=== PATIENT | female | born 1955 | race Caucasian/White ===

== ENCOUNTER 2017-06-07 08:21 | Emergency (ER) | payer BC ==
[2017-06-07 09:22] LABS: #Eosinphils 0.2 thou/uL (0.0-0.7); #Lymphocytes 1.6 thou/uL (1.20-3.40); #Monocytes 0.8 thou/uL (0.11-0.59); #Neutrophils 9.2 thou/uL (1.40-6.50); %Basophils 0.3 % (0.0-1.0); %Eosinophils 1.4 % (0.0-10.0); %Lymphocytes 13.4 % (21.0-51.0); %Monocytes 6.4 % (0.0-10.0); %Neutrophils 78.5 % (42.0-75.0); Hemoglobin 15.2 g/dL (12.0-16.0); Mean Corpuscular HGB CONC 34.1 g/dL (32.0-36.0); Mean Corpuscular Hemoglobin 31.6 pg (27.0-31.0); Mean Corpuscular Volume 92.7 fl (81.0-99.0); Mean Platelet Volume 8.5 fL (7.4-10.4); Platelet Count 233 thou/uL (130-400); RBC Distribution Width 11.3 % (11.5-14.5); White Blood Cell (WBC) Count 11.8 thou/uL (4.8-10.8)
[2017-06-07 09:27] LABS: Bilirubin Negative (Negative); Blood, Urine Negative (Negative); Clarity CLEAR (Clear); Glucose, Urine (Dipstick) Negative (Negative); Leukocyte Small (Negative); Nitrite Negative (Negative); Protein, Urine (Dipstick) Negative (Neg-Trace); Specific Gravity, Urine 1.023 (1.002-1.036); Urobilinogen 0.2 mg/dL (0.2-1.0); pH, Urine 7.5 (5.0-9.0)
[2017-06-07 09:33] LABS: Bacteria/HPF None Seen HPF (None Seen); Hyaline Casts/LPF 0-3 HYALINE CAST LPF (0-3 Hyaline); Pathc Cast-AUWi Flag 0.13 (0-2.49); RBC/HPF 0-3 HPF (0-3); Squamous Epithelial 0-3 HPF (0-3)
[2017-06-07 09:41] LABS: ALT (SGPT) 21 U/L (8-55); AST (SGOT) 17 U/L (5-34); Albumin 4.2 g/dL (3.4-4.8); Alkaline Phosphatase 92 U/L (40-150); Anion Gap 11 mmol/L (10-20); BUN (Urea Nitrogen) 12 mg/dL (9.8-20.1); Bilirubin, Total 1.1 mg/dL (0.2-1.2); Calc. Creatinine Clearance 0 mL/min (70-130); Carbon Dioxide 28 mmol/L (23-31); Chloride 104 mmol/L (98-107); Estimated GFR-MDRD 67; Globulin 3.2 g/dL (2.4-3.5); Glucose 165 mg/dL (80-115); Lipase 46 U/L (8-78); Protein, Total 7.4 g/dL (6.0-8.3); Sodium 139 mmol/L (136-145)
--- NOTE | 2017-06-07 10:47 | CT ---
ABDOMEN AND PELVIC CT SCAN WITH IV CONTRAST: History: 61-year-old female with history of left lower quadrant abdominal pain radiating to right side. FINDINGS: The lung bases are clear. There is a small hiatal hernia. The liver, gallbladder, pancreas, spleen, a nd adrenal glands are unremarkable. Several small renal cysts are noted. No renal calculus or acute G U obstruction. Slightly prominent right extrarenal pelvis. Focal scar involving the lateral lower apple e of the left kidney. There are a few scattered colonic diverticulosis changes with a focal area of p rominent pericolonic fat stranding at the left colon, sigmoid colon junction with associated inflamed diverticulum, evidence for acute diverticulitis without evidence for drainable abscess or free intra peritoneal or extraluminal gas. Uterus and adnexa are unremarkable. No evidence for acute appendiciti s. IMPRESSION: Evidence for acute diverticulitis at the left colon, sigmoid colon junction without evidence for drai nable abscess or extraluminal gas. Minimal dilatation of several adjacent small bowel loops, probably related to some focal ileus. No evidence for other significant acute process. Other findings as abov e. POS: [facility]
[2017-06-07] MEDS ORDERED: ISOVUE-370 76%-LOCM 1 ML ONE (11:38)
== END 2017-06-07 10:53 | disposition home or self-care (01) ==
LOC: ERS 08:21
DX: K57.92 Diverticulitis of intestine, part unspecified, without perforation or abscess without bleeding (principal); E11.9 Type 2 diabetes mellitus without complications; E03.9 Hypothyroidism, unspecified; Z79.899 Other long term (current) drug therapy
CPT/HCPCS: 36415; 74177; 80053; 81003; 81015; 83690; 85025; 96360

== ENCOUNTER 2017-11-01 14:47 | Outpatient (CLI) | payer BC | END 2017-11-01 14:48 | disposition home or self-care (01) | LOC: BICMAMMO 14:47 | PROVIDERS: ATTEND Family Medicine | DX: Z12.31 Encounter for screening mammogram for malignant neoplasm of breast (principal) | CPT/HCPCS: 77063; 77067 ==

== ENCOUNTER 2020-04-30 18:06 | Emergency (ER) | payer BC ==
[2020-04-30 18:28] LABS: #Basophils 0.1 thou/uL (0.0-0.2); #Lymphocytes 2.4 thou/uL (1.20-3.40); #Monocytes 0.6 thou/uL (0.11-0.59); #Neutrophils 5.3 thou/uL (1.40-6.50); %Basophils 0.6 % (0.0-1.0); %Eosinophils 0.4 % (0.0-10.0); %Lymphocytes 28.5 % (21.0-51.0); %Monocytes 7.6 % (0.0-10.0); %Neutrophils 62.9 % (42.0-75.0); Hemoglobin 15.1 g/dL (12.0-16.0); Mean Corpuscular HGB CONC 33.1 g/dL (32.0-36.0); Mean Corpuscular Volume 90.7 fL (78.0-98.0); Mean Platelet Volume 8.8 fL (7.4-10.4); Platelet Count 259 thou/uL (130-400); RBC Distribution Width 12.5 % (11.5-14.5); Red Blood Cell (RBC) Count 5.02 mill/uL (4.20-5.40); White Blood Cell (WBC) Count 8.4 thou/uL (4.8-10.8)
--- NOTE | 2020-04-30 18:39 | RAD ---
Portable frontal chest radiograph: 04/30/2020 COMPARISON: 02/25/2019 HISTORY: Chest tightness with nausea FINDINGS: Heart and mediastinal contours are stable. No pneumothorax or pleural fluid. No focal conso lidation or alveolar edema. IMPRESSION: No acute findings.
[2020-04-30 18:57] LABS: ALT (SGPT) 34 U/L (8-55); AST (SGOT) 27 U/L (5-34); Albumin 4.2 g/dL (3.4-4.8); Alkaline Phosphatase 82 U/L (40-110); Anion Gap 16 mmol/L (10-20); BUN (Urea Nitrogen) 14 mg/dL (9.8-20.1); Calc. Creatinine Clearance 0 mL/min (70-130); Calcium 9.5 mg/dL (7.8-10.44); Carbon Dioxide 26 mmol/L (23-31); Chloride 99 mmol/L (98-107); Globulin 3.4 g/dL (2.4-3.5); Glucose 130 mg/dL (80-115); Potassium 3.6 mmol/L (3.5-5.1); Protein, Total 7.6 g/dL (6.0-8.3); Sodium 137 mmol/L (136-145)
[2020-04-30] MEDS ORDERED: Ketorolac Tromethamine 30 MG/ML VIAL ONE (19:21)
== END 2020-04-30 20:15 | disposition home or self-care (01) ==
LOC: ERS 18:06
DX: R07.9 Chest pain, unspecified (principal); E11.9 Type 2 diabetes mellitus without complications; E03.9 Hypothyroidism, unspecified; Z79.899 Other long term (current) drug therapy
CPT/HCPCS: 71045; 80053; 84484; 85025; 93005; 96374; J1885

== ENCOUNTER 2020-05-18 12:44 | Outpatient (CLI) | payer BC ==
--- NOTE | 2020-05-18 13:34 | MMO ---
Bilateral MAMMO Bilat Screen [facility]. CLINICAL HISTORY: Patient is 64 years old and is seen for screening. The patient has no family history of breast cancer. The patient has no personal history of cancer. VIEWS: The views performed were: bilateral craniocaudal with tomosynthesis and bilateral mediolateral oblique with tomosynthesis. FILMS COMPARED: The present examination has been compared to prior imaging studies performed at [facility] on 01/04/2011, 02/09/2012, 07/14/2016 and 11/01/2017. This study has been interpreted with the assistance of computer-aided detection. MAMMOGRAM FINDINGS: There are scattered fibroglandular densities. There are no suspicious masses, suspicious calcifications, or new areas of architectural distortion. IMPRESSION: THERE IS NO MAMMOGRAPHIC EVIDENCE OF MALIGNANCY. A ROUTINE FOLLOW-UP MAMMOGRAM IN 1 YEAR IS RECOMMENDED. THE RESULTS OF THIS EXAM WERE SENT TO THE PATIENT. ACR BI-RADS Category 1 - Negative MAMMOGRAPHY NOTE: 1. A negative mammogram report should not delay a biopsy if a dominant of clinically suspicious mass is present. 2. Approximately 10% to 15% of breast cancers are not detected by mammography. 3. Adenosis and dense breasts may obscure an underlying neoplasm. Reported by: MARTHA MUNOZ MD Electonically Signed: [id number]
== END 2020-05-18 12:45 | disposition home or self-care (01) ==
LOC: BICMAMMO 12:44
PROVIDERS: ATTEND Internal Medicine
DX: Z12.31 Encounter for screening mammogram for malignant neoplasm of breast (principal)
CPT/HCPCS: 77063; 77067

== ENCOUNTER 2021-09-21 10:07 | Outpatient (CLI) | payer MEDICARE, BC | END 2021-09-21 10:08 | disposition home or self-care (01) | LOC: NM 10:07 | PROVIDERS: ATTEND Internal Medicine | DX: R10.9 Unspecified abdominal pain (principal) | CPT/HCPCS: 78227; A9537 ==

== ENCOUNTER 2024-05-30 12:24 | Outpatient (CLI) | payer MEDICARE, BC | END 2024-05-30 12:25 | disposition home or self-care (01) | LOC: BICMAMMO 12:24 | PROVIDERS: ATTEND Obstetrics & Gynecology | DX: Z12.31 Encounter for screening mammogram for malignant neoplasm of breast (principal) | CPT/HCPCS: 77063; 77067 ==